=== PATIENT | female | born 1980 | race Caucasian/White ===

== ENCOUNTER 2021-05-15 07:21 | Inpatient (IN) | payer BC ==
[~2021-05-15 07:21] MED LIST: cefOXitin 2 GM Vial ONE
[2021-05-15] MEDS ORDERED: Scopolamine 1.5 MG Transdermal Patch TOP SCH (07:45)
[2021-05-15] MEDS ORDERED: Celecoxib 200 MG Cap PO ONE (07:45)
[2021-05-15] MEDS ORDERED: Acetaminophen 500 MG Tab PO ONE (07:45)
[2021-05-15] MEDS ORDERED: Rocuronium 50 MG/5 ML Vial ONE (07:54)
[2021-05-15] MEDS ORDERED: Dexamethasone 4 MG/ML SDV ONE (07:54)
[2021-05-15] MEDS ORDERED: fentaNYL 250 MCG/5 ML SDV ONE (07:54)
[2021-05-15] MEDS ORDERED: Glycopyrrolate 0.2 MG/ML 5 ML MDV ONE (07:54)
[2021-05-15] MEDS ORDERED: Ondansetron 4 MG/2 ML SDV ONE (07:54)
[2021-05-15] MEDS ORDERED: Propofol 200 MG/20 ML SDV ONE (07:54)
[2021-05-15] MEDS ORDERED: Neostigmine Methylsulfate 1 MG/ML 5 ML Syringe ONE (07:54)
[2021-05-15] MEDS ORDERED: Succinylcholine 200 MG/10 ML MDV ONE (07:54)
[2021-05-15] MEDS ORDERED: Dextrose 5%-Lactated Ringers 1,000 ML IV SCH (08:15)
[2021-05-15] MEDS ORDERED: Magnesium Sulfate 3.8 GM in Sodium Chloride 0.9% 250 ML IV ONE (09:00)
[2021-05-15] MEDS ORDERED: Ketamine 16 MG in Sodium Chloride 0.9% 19.84 ML IV SCH (09:00)
[2021-05-15] MEDS ORDERED: Magnesium Sulfate 3.5 GM in Sodium Chloride 0.9% 100 ML IV SCH (09:00)
[2021-05-15] MEDS ORDERED: Ketamine 500 MG/5 ML MDV IV SCH (09:00)
[2021-05-15] MEDS ORDERED: cefOXitin 2 GM in Sodium Chloride 0.9% 50 ML IV ONE (09:00)
[2021-05-15] MEDS ORDERED: Labetalol 20 MG/4 ML Syringe ONE (10:38)
[2021-05-15] MEDS ORDERED: Lactated Ringers 1,000 ML ONE (10:38)
[2021-05-15] MEDS ORDERED: fentaNYL 100 MCG/2 ML SDV ONE (11:28)
[2021-05-15] MEDS ORDERED: hydrOXYzine HCL 100 MG/2 ML SDV IM ONE (11:35)
[2021-05-15] MEDS ORDERED: Labetalol 20 MG/4 ML Syringe IVPUSH PRN (13:00)
[2021-05-15] MEDS ORDERED: traMADol 50 MG Tab PO PRN (13:00)
[2021-05-15] MEDS ORDERED: Calcium Gluconate 10% 1 GM/10 ML SDV IVPUSH PRN (13:00)
[2021-05-15] MEDS ORDERED: Ondansetron 4 MG/2 ML SDV IVPUSH PRN (13:00)
[2021-05-15] MEDS ORDERED: oxyCODONE 5 MG Tab PO PRN (13:00)
[2021-05-15] MEDS ORDERED: Metoclopramide 10 MG/2 ML SDV IVPUSH PRN (13:00)
[2021-05-15] MEDS ORDERED: HYDROmorphone 1 MG/ML Syringe IV PRN (13:00)
[2021-05-15] MEDS ORDERED: Acetaminophen 500 MG Tab PO PRN (13:00)
[2021-05-15] MEDS ORDERED: HYDROmorphone 0.5 MG/0.5 ML Syringe IVPUSH PRN (13:00)
[2021-05-15] MEDS ORDERED: diphenhydrAMINE 50 MG/ML SDV IVPUSH PRN (13:00)
[2021-05-15] MEDS ORDERED: hydrOXYzine HCL 100 MG/2 ML SDV IM PRN (13:00)
[2021-05-15] MEDS: Cyclobenzaprine 10 MG Tab PO PRN (14:49)
[2021-05-15] MEDS ORDERED: Pantoprazole 40 MG Vial IVPUSH SCH (16:00)
[2021-05-15] MEDS ORDERED: MVI, Adult with Vitamin K 10 ML, Thiamine 200 MG, Zinc/Copper/Manganese/Selenium 1 ML i... IV SCH ×4 (16:00)
[2021-05-15] MEDS: cefOXitin 2 GM in Sodium Chloride 0.9% 50 ML IV SCH ×2 (16:30→21:23)
[2021-05-15] MEDS: Acetaminophen 500 MG Tab PO SCH ×3 (16:30→23:04)
[2021-05-15] MEDS: Heparin Sodium 5,000 Units/ML Vial SUBCUT SCH (21:23)
[2021-05-15] MEDS: Dextrose 5%-Lactated Ringers 1,000 ML IV SCH (22:57)
[2021-05-16] MEDS ORDERED: Iopamidol 612 MG/ML 50 ML SDV PO STA (01:11)
[2021-05-16] MEDS: cefOXitin 2 GM in Sodium Chloride 0.9% 50 ML IV SCH ×3 (04:05→16:58)
[2021-05-16] MEDS: Dextrose 5%-Lactated Ringers 1,000 ML IV SCH (07:14)
[2021-05-16] MEDS: Acetaminophen 500 MG Tab PO SCH ×3 (07:16→23:48)
[2021-05-16] MEDS: Heparin Sodium 5,000 Units/ML Vial SUBCUT SCH ×2 (07:16→20:50)
[2021-05-16] MEDS: Cyclobenzaprine 10 MG Tab PO PRN ×2 (07:18→20:49)
[2021-05-16] MEDS ORDERED: Ondansetron 4 MG Tab.DIS PO PRN (07:37)
[2021-05-16] MEDS ORDERED: hydrOXYzine HCl 25 MG Tab PO PRN (07:38)
[2021-05-16] MEDS ORDERED: Dextrose 5%-Lactated Ringers 1,000 ML IV SCH (07:45)
--- NOTE | 2021-05-16 08:37 | PN ---
DATE OF SERVICE: 05/16/2021 SUBJECTIVE: Farnaz is postop day #1. Her upper GI this morning was normal. Her pain has been controlled. She has been up ambulating. She has no questions or concerns. OBJECTIVE: GENERAL: Farnaz is a pleasant 41-year-old female. VITAL SIGNS: Height 5 feet 4 inches, weight is 263 pounds. TPR 98.3, 73, 16, and blood pressure 132/78. HEENT: Negative. NECK: Supple. HEART: Regular rate and rhythm. LUNGS: Clear. ABDOMEN: Dressings dry and intact. JORJE drain is intact and draining 45 mL of a light red drainage. EXTREMITIES: Without peripheral edema. ASSESSMENT: 1. Laparoscopic Delgado-en-Y gastric bypass surgery. 2. Liver biopsy. 3. Repair of diaphragmatic hernia. POSTOPERATIVE DIAGNOSES: 1. Morbid obesity. 2. Hepatomegaly. 3. Diaphragmatic hernia. Date of procedure: 05/15/2021. Surgeon: Domenic Kendall MD. PLAN: 1. Decrease IV to 100 mL per hour. 2. Communication order: 3 med cups every 20 minutes, record at bedside. 3. Dressing off, may shower. 4. Decrease IV to 100 mL per hour. 5. Atarax 50 mg q.4 hours p.r.n. pain. 6. Zofran 4 mg ODT every 4 hours p.r.n. nausea. 7. Continue to ambulate and use of incentive spirometer. 8. We will evaluate p.r.n. or in a.m. Deirdre Brody PA-C /[id number]
--- NOTE | 2021-05-16 09:33 | CR ---
[facility] HISTORY: Postbariatric surgery FINDINGS: Patient swallowed water-soluble contrast. Upright views of the abdomen show no evidence of extravasation or obstruction. There is a surgical drain in the left upper quadrant. IMPRESSION: Status post bariatric surgery No extravasation or obstruction seen
[2021-05-16] MEDS: Celecoxib 200 MG Cap PO SCH ×2 (10:00→20:50)
[2021-05-16] MEDS: SCOPOLAMINE PATCH CHECK TOP SCH (10:09)
--- NOTE | 2021-05-16 13:13 | OR ---
DATE OF PROCEDURE: 05/15/2021 SURGEON: Domenic Kendall MD PREOPERATIVE DIAGNOSIS: Morbid obesity. POSTOPERATIVE DIAGNOSES: 1. Morbid obesity. 2. Marked hepatomegaly. 3. Paraesophageal diaphragmatic hernia. OPERATIVE PROCEDURE: Diagnostic laparoscopy with: 1. Laparoscopic Delgado-en-Y gastric bypass with long limb gastroenterostomy (86746). 2. Tex-Cut needle liver biopsy (16126). 3. Repair of paraesophageal diaphragmatic hernia (74028). ANESTHESIA: General. WEBBING TACKER: Deirdre Brody PA-C INDICATIONS FOR PROCEDURE: A 41-year-old female presenting with longstanding morbid obesity with increasingly significant comorbidities. After preoperative evaluation and discussion, she wished to proceed with a gastric bypass procedure. Potential risks including bleeding, infection, leaks from various GI tract closures, problems with bowel obstruction over time, as well as possibility of cardiopulmonary, septic, or hemorrhagic complications leading to were discussed, and the patient wishes to proceed. DETAILS OF PROCEDURE: The patient was taken to the operating room and placed in a supine position. After general endotracheal anesthesia was induced, she was converted to a lithotomy position and the abdomen prepped and draped. 15 cm inferior and 5 cm left of xiphoid process, a transverse incision was made and the peritoneal cavity entered under direct vision with an Optiview trocar and inflated to 15 mmHg pressure with CO2. Laparoscope was then reinserted, no underlying trocar insertion site injuries were seen. Following this, 5 additional trocars were placed across the upper and mid abdomen. Bilateral transversus abdominis plane blocks were placed. The patient was noted to have marked hepatomegaly with liver volume being roughly 2 to 3 times normal, liver grossly fatty infiltrated. Tex-Cut needle biopsies were obtained from the left lobe of liver. Minimal bleeding from the biopsy sites was controlled with electrocautery. The omentum was then divided in the midline up to the level of the transverse colon. This allowed identification of the small bowel at the ligament of Treitz. The small bowel was then traced out 125 cm distal to that point, where it was divided transversely with a TALI stapler. Small bowel was then traced out an additional 150 cm, where the [id number] enteroenterostomy was accomplished with internal firing of the Endo-TALI 60 mm stapler. Common opening was then closed transversely with the same stapler, and the angles of anastomosis and mesenteric defect approximated with some 0 Ethibond stitch along with fibrin sealant. The divided end of the Delgado-limb was then from the mesentery for a few centimeters, which allowed an antecolic position of the Delgado limb up to the level of gastroesophageal junction without tension. The liver was then retracted anteriorly. The patient was noted to have a moderate-sized paraesophageal diaphragmatic hernia with prolapse of some perigastric fat, some gastric fundus, and a tongue of omentum in a plane anterior to the course of the esophagus. Hernia was retracted downward and peritoneum overlying incised and reflected downward, and anterior repair of the diaphragmatic hernia was then accomplished with some 0 Ethibond sutures reinforced with PTFE pledgets. The gastrointestinal catheter was then inflated to 15 mL and pulled up snugly against EG junction. Gastric wall over the apex balloon was then marked with electrocautery and balloon catheter deflated and pulled up from the esophagus. The lesser omental tissue adjacent to the gastric cardia was then incised allowing dissection behind the stomach at that level. Pouch formation was initiated with transverse firing of the TALI stapler at the level of the cauterized marker at the gastric cardia. The pouch was then completed with 2 additional firings of the TALI stapler up to and through the angle of His. Upon completion of the pouch, both staple lines were noted to be intact. The anvil of a 25 mm EEA stapler was attached to Worth sump type tube. The latter was brought down through the mouth, taken out through a small opening in the gastric pouch allowing the anvil likewise to be pulled down to within the gastric pouch. The divided end of the Delgado limb was then opened and main body of the EEA stapler passed several centimeters in the lumen of small bowel, brought up the anvil and united with it, thus creating the gastrojejunostomy. Upon removal of the stapler, double donuts of mucosa were noted within it. Small bowel was closed off with a vascular staple line. Gastrojejunostomy was then reinforced with some 3-0 Vicryl seromuscular stitch along with fibrin sealant. Leak test was accomplished with injection of 120 mL of air in the gastric pouch while it was submerged with cefoxitin-containing saline solution. No leaks were identified. A single Guero- Corado drain was then taken out through the left lateral trocar site and positioned adjacent to the gastric cardia and from there up into the splenic fossa with no further problems noted. Trocars were removed and the peritoneal cavity deflated. Incisions were closed with 4-0 Vicryl skin stitch and drain affixed with 4-0 Vicryl stitch as well, and the patient taken to the recovery room in satisfactory condition. Physician after school program assistant, Deirdre Brody, played an essential role in assisting in this case, helping to position the patient, retract structures as needed, as well as suturing and cutting sutures when indicated. Her presence improved the patient's safety and decreased the operative time. Domenic Kendall MD Job #: [id number]
[2021-05-16] MEDS ORDERED: MVI, Adult with Vitamin K 10 ML, Thiamine 200 MG, Zinc/Copper/Manganese/Selenium 1 ML i... IV SCH ×4 (16:00)
[2021-05-16] MEDS ORDERED: Pantoprazole 40 MG Delayed-Release Granules 1 Packet PO SCH (16:30)
[2021-05-17] MEDS: Acetaminophen 500 MG Tab PO SCH (07:19)
[2021-05-17] MEDS: Heparin Sodium 5,000 Units/ML Vial SUBCUT SCH (07:20)
[2021-05-17] MEDS ORDERED: Magnesium Hydroxide 400 MG/5 ML Susp 30 ML Cup PO PRN (08:42)
[2021-05-17] MEDS ORDERED: Cyanocobalamin (Vitamin B12) 1,000 MCG/ML SDV IM ONE (09:00)
[2021-05-17] MEDS: SCOPOLAMINE PATCH CHECK TOP SCH (09:41)
[2021-05-17] MEDS: Celecoxib 200 MG Cap PO SCH (09:41)
--- NOTE | 2021-05-18 08:16 | DISCH ---
FINAL DIAGNOSES: 1. Morbid obesity. 2. Marked hepatomegaly. 3. Paraesophageal diaphragmatic hernia. 4. Gastroesophageal reflux disease. OPERATIVE PROCEDURES: Done on 05/15/2021, diagnostic laparoscopy with: 1. Laparoscopic Delgado-en-Y gastric bypass with long-limb gastroenterostomy. 2. Tex-Cut needle liver biopsy. 3. Repair of paraesophageal diaphragmatic hernia. SUMMARY: This is a 41-year-old female presenting with longstanding morbid obesity, increasingly significant comorbidities. After preoperative evaluation and discussion, she wished to proceed with a gastric bypass procedure. This was done on the date of admission and the patient had concurrent liver biopsy and repair of paraesophageal diaphragmatic hernia. Clinically, she has done well postoperatively requiring only Celebrex and Tylenol for pain control and is tolerating step-2 diet. She will be sent home with omeprazole 10 mg daily which is her previous dose and instructed she can discontinue that when she is off the Celebrex and then Celebrex 200 mg p.o. b.i.d. Continue her p.r.n. status after 5 days, then Tylenol 1 g p.o. q.i.d. p.r.n. She will be holding her medications and other supplements until after her first appointment and follow up with Deirdre Brody at [facility] on 05/26/2021 at 11 a.m. Job #: [id number]
== END 2021-05-17 12:15 | disposition home or self-care (01) | DRG 403 ==
LOC: JP.SDS 07:21 → JP.SDSSCHI 07:21 → EDSTATUS 09:15 → JP.MS 11:40
PROVIDERS: ADMIT Surgery; ATTEND Surgery
PROC: 0D164ZA Bypass Stomach to Jejunum, Percutaneous Endoscopic Approach (ICD-10-PCS; principal; 2021-05-15)
PROC: 0FB24ZX Excision of Left Lobe Liver, Percutaneous Endoscopic Approach, Diagnostic (ICD-10-PCS; 2021-05-15)
PROC: 0BQT4ZZ Repair Diaphragm, Percutaneous Endoscopic Approach (ICD-10-PCS; 2021-05-15)
DX: E66.01 Morbid (severe) obesity due to excess calories (principal); R16.0 Hepatomegaly, not elsewhere classified; K44.9 Diaphragmatic hernia without obstruction or gangrene; K21.9 Gastro-esophageal reflux disease without esophagitis; Z90.49 Acquired absence of other specified parts of digestive tract; Z87.891 Personal history of nicotine dependence; Z68.41 Body mass index [BMI] 40.0-44.9, adult
CPT/HCPCS: 36415; 74240; 74240-26; 81025; 86850; 86900; 86901; 94762; A9270-GY; C9113; J0171; J0330; J0694; J1100; J1644; J2405; J2704; J2710; J2795; J3010; J3410; J3411; J3420; J3475; J3490; J7050; J7120; J7121; Q9967